=== PATIENT | female | born 1965 | race Two or more races ===

== ENCOUNTER 2021-09-09 11:33 | Inpatient (IN) | payer OTHER ==
[~2021-09-09] VITALS: Ht 160 cm; Wt 68.1 kg
[2021-09-09] MEDS ORDERED: METOPROLOL TARTRATE 5 MG/5 ML VIAL IVP ONE (12:00)
[2021-09-09] MEDS ORDERED: 0.9% SODIUM CHLORIDE 10 ML SYRINGE IVP PRN (12:00)
[2021-09-09] MEDS ORDERED: ACETAMINOPHEN 325 MG TABLET PO PRN (12:00)
[2021-09-09] MEDS ORDERED: ONDANSETRON HCL 4 MG/2 ML VIAL IVP PRN ×2 (12:00→14:00)
[2021-09-09] MEDS ORDERED: NITROGLYCERIN 0.4 MG SUBLINGUAL TABLET #25 SL ONE (12:00)
[2021-09-09 12:25] LABS: BASOPHILS % (AUTO) 0.7 % (0.0-2.0); EOSINOPHILS % (AUTO) 2.9 % (1.0-6.0); HEMATOCRIT 37.8 % (36-46); HEMOGLOBIN 12.5 g/dL (12.0-16.0); LYMPHOCYTES # (AUTO) 2.1 K/uL (1.0-4.8); LYMPHOCYTES % (AUTO) 30.6 % (22.0-44.0); MEAN CORPUSCULAR HEMOGLOBIN 26.1 pg (26.0-34.0); MEAN CORPUSCULAR HGB CONC 33.1 G/dL (31.0-37.0); MEAN CORPUSCULAR VOLUME 79 fL (80-100); MONOCYTES # (AUTO) 0.5 K/uL (0.1-1.0); MONOCYTES % (AUTO) 7.3 % (2.0-9.0); NEUTROPHILS # (AUTO) 3.9 K/uL (1.8-7.7); NEUTROPHILS % (AUTO) 58.5 % (40.0-70.0); PLATELET COUNT (AUTO) 350 K/uL (150-450); RED BLOOD CELL COUNT(AUTO) 4.79 MIL/uL (4.00-5.20); RED CELL DISTRIBUTION WIDTH 14.9 % (11.5-14.5)
[2021-09-09 12:33] LABS: CALCIUM, TOTAL 9.7 mg/dL (8.8-10.5); CREATININE 0.96 mg/dL (0.60-1.30); POTASSIUM 3.7 mmol/L (3.5-5.1)
[2021-09-09 12:39] LABS: ALBUMIN 2.8 g/dL (3.4-5.0); BILIRUBIN,TOTAL 0.3 mg/dL (0.1-1.0); TOTAL PROTEIN, SERUM 8.2 g/dL (6.4-8.2)
[2021-09-09] MEDS ORDERED: HEPARIN SODIUM,PORCINE 5,000 UNITS/ML VIAL IVP PRN ×2 (13:00)
[2021-09-09] MEDS ORDERED: HEPARIN SODIUM 25000 UNITS/D5W 250 ML IV PRN (13:00)
[2021-09-09] MEDS ORDERED: CLOPIDOGREL BISULFATE 75 MG TABLET PO ONE (13:00)
[2021-09-09] MEDS ORDERED: HEPARIN SODIUM,PORCINE 5,000 UNITS/ML VIAL IVP ONE (13:00)
[2021-09-09 13:31] LABS: INR 0.9 (0.9-1.1); PROTHROMBIN TIME 10.1 SEC (9.4-11.6)
[2021-09-09] MEDS ORDERED: DEXTROSE 50%-WATER 25 GM/50 ML SYRINGE IVP PRN (14:00)
[2021-09-09] MEDS: CARVEDILOL 12.5 MG TABLET PO SCH ×2 (14:18→21:37)
[2021-09-09 21:21] VITALS: BP 171/92
[2021-09-09 21:36] LABS: COVID AG,FIA SOURCE NASOPHARYNGEAL
[2021-09-09] MEDS: DOCUSATE SODIUM 100 MG CAPSULE PO SCH (21:37)
[2021-09-09] MEDS: FAMOTIDINE 20 MG TABLET PO SCH (21:37)
[2021-09-09] MEDS: INSULIN LISPRO 100 UNITS/ML SQ PRN (21:38)
[2021-09-09] MEDS: ACETAMINOPHEN 325 MG TABLET PO PRN (21:38)
[2021-09-09 21:43] LABS: GLUCOMETER DEV NAME(LOC) 5S.2B; GLUCOSE,POINT OF CARE 304 MG/DL (70-110)
[2021-09-10] VITALS (10 sets, daily range): BP systolic 142–181; BP diastolic 74–94
[2021-09-10 02:28] LABS: BASOPHILS % (AUTO) 0.7 % (0.0-2.0); EOSINOPHILS % (AUTO) 3.1 % (1.0-6.0); LYMPHOCYTES # (AUTO) 2.9 K/uL (1.0-4.8); LYMPHOCYTES % (AUTO) 39.2 % (22.0-44.0); MEAN CORPUSCULAR HEMOGLOBIN 25.8 pg (26.0-34.0); MEAN CORPUSCULAR HGB CONC 32.5 G/dL (31.0-37.0); MEAN CORPUSCULAR VOLUME 80 fL (80-100); MONOCYTES # (AUTO) 0.7 K/uL (0.1-1.0); MONOCYTES % (AUTO) 8.9 % (2.0-9.0); NEUTROPHILS # (AUTO) 3.6 K/uL (1.8-7.7); NEUTROPHILS % (AUTO) 48.1 % (40.0-70.0); PLATELET COUNT (AUTO) 327 K/uL (150-450); RED BLOOD CELL COUNT(AUTO) 4.65 MIL/uL (4.00-5.20); RED CELL DISTRIBUTION WIDTH 14.8 % (11.5-14.5)
[2021-09-10] MEDS ORDERED: HEPARIN SODIUM 25000 UNITS/D5W 250 ML IV PRN (03:15)
[2021-09-10] MEDS ORDERED: HEPARIN SODIUM,PORCINE 5,000 UNITS/ML VIAL IVP PRN ×2 (03:15)
[2021-09-10] MEDS ORDERED: LIDOCAINE/PF 1% 30 ML VIAL ONE (07:22)
[2021-09-10] MEDS ORDERED: IOHEXOL 300 MG/ML 100 ML VIAL ONE (07:22)
[2021-09-10] MEDS ORDERED: HEPARIN SODIUM 1000 UNITS/NS 1,000 ML ONE (07:22)
[2021-09-10] MEDS ORDERED: SODIUM BICARBONATE 50 MEQ/50 ML VIAL ONE (07:22)
[2021-09-10] MEDS ORDERED: IOHEXOL 300 MG/ML 150 ML VIAL ONE (07:22)
[2021-09-10] MEDS ORDERED: IOHEXOL 300 MG/ML 50 ML VIAL ONE (07:22)
[2021-09-10] MEDS ORDERED: MIDAZOLAM HCL 2 MG/2 ML VIAL ONE ×2 (08:09→08:22)
[2021-09-10] MEDS ORDERED: FentaNYL CITRATE PF 100 MCG/2 ML VIAL ONE ×2 (08:09→08:22)
[2021-09-10] MEDS ORDERED: HEPARIN SODIUM 1000 UNITS/NS 1,000 ML IARTER ONE (08:45)
[2021-09-10] MEDS ORDERED: LIDOCAINE 1% 30 ML/SOD BICARB 8.4% 4 ML SQ ONE (08:45)
[2021-09-10] MEDS ORDERED: IOHEXOL 300 MG/ML 50 ML VIAL IARTER ONE (08:45)
[2021-09-10] MEDS ORDERED: FentaNYL CITRATE PF 100 MCG/2 ML VIAL IVP ONE ×3 (08:45)
[2021-09-10] MEDS ORDERED: MIDAZOLAM HCL 2 MG/2 ML VIAL IVP ONE ×3 (08:45)
[2021-09-10] MEDS ORDERED: IOHEXOL 300 MG/ML 150 ML VIAL IARTER ONE (08:45)
[2021-09-10] MEDS ORDERED: SODIUM CHLORIDE 0.9% 500 ML IV SCH (08:45)
[2021-09-10] MEDS ORDERED: HEPARIN SODIUM,PORCINE 5,000 UNITS/ML VIAL IVP ONE (08:45)
[2021-09-10] MEDS ORDERED: SODIUM CHLORIDE 0.9% 500 ML IV ONE (08:45)
[2021-09-10] MEDS ORDERED: CLOPIDOGREL BISULFATE 75 MG TABLET PO SCH (09:00)
[2021-09-10] MEDS ORDERED: TICAGRELOR 90 MG TABLET ONE (09:04)
[2021-09-10] MEDS ORDERED: SODIUM CHLORIDE 0.9% 1,000 ML IV SCH (09:15)
[2021-09-10 09:16] LABS: GLUCOMETER DEV NAME(LOC) 5S.2B; GLUCOSE,POINT OF CARE 154 MG/DL (70-110)
[2021-09-10] MEDS ORDERED: CLOPIDOGREL BISULFATE 300 MG TABLET ONE (09:18)
[2021-09-10] MEDS ORDERED: CLOPIDOGREL BISULFATE 300 MG TABLET PO ONE (09:30)
[2021-09-10] MEDS: CARVEDILOL 12.5 MG TABLET PO SCH ×2 (11:22→20:37)
[2021-09-10] MEDS: DOCUSATE SODIUM 100 MG CAPSULE PO SCH ×2 (11:22→21:00)
[2021-09-10] MEDS: FAMOTIDINE 20 MG TABLET PO SCH ×2 (11:22→20:37)
[2021-09-10] MEDS: ASPIRIN 81 MG CHEWABLE TABLET PO SCH (11:22)
[2021-09-10] MEDS: ATORVASTATIN CALCIUM 40 MG TABLET PO SCH (11:23)
[2021-09-10] MEDS: INSULIN LISPRO 100 UNITS/ML SQ PRN ×3 (11:34→20:37)
[2021-09-10 12:53] LABS: GLUCOMETER DEV NAME(LOC) 5S.2B; GLUCOSE,POINT OF CARE 163 MG/DL (70-110)
[2021-09-10] MEDS: ACETAMINOPHEN 325 MG TABLET PO PRN (17:58)
[2021-09-10] MEDS: MORPHINE SULFATE 2 MG/ML SYRINGE IVP PRN (20:39)
[2021-09-11 04:20] VITALS: BP 153/87
[2021-09-11] MEDS: INSULIN LISPRO 100 UNITS/ML SQ PRN ×2 (06:16→11:56)
[2021-09-11 06:26] LABS: GLUCOMETER DEV NAME(LOC) 5S.1; GLUCOSE,POINT OF CARE 189 MG/DL (70-110)
[2021-09-11 07:11] LABS: CALCIUM, TOTAL 9.6 mg/dL (8.8-10.5); CREATININE 1.05 mg/dL (0.60-1.30); POTASSIUM 3.8 mmol/L (3.5-5.1)
[2021-09-11 07:24] VITALS: BP 160/94
[2021-09-11] MEDS: ATORVASTATIN CALCIUM 40 MG TABLET PO SCH (07:56)
[2021-09-11] MEDS: FAMOTIDINE 20 MG TABLET PO SCH (07:56)
[2021-09-11] MEDS: CARVEDILOL 12.5 MG TABLET PO SCH (07:56)
[2021-09-11] MEDS: DOCUSATE SODIUM 100 MG CAPSULE PO SCH (07:57)
[2021-09-11] MEDS: ASPIRIN 81 MG CHEWABLE TABLET PO SCH (07:57)
[2021-09-11] MEDS: MORPHINE SULFATE 2 MG/ML SYRINGE IVP PRN (08:03)
[2021-09-11] MEDS ORDERED: CLOPIDOGREL BISULFATE 75 MG TABLET PO SCH (09:00)
[2021-09-11 11:25] VITALS: BP 136/73
[2021-09-11 12:41] LABS: GLUCOMETER DEV NAME(LOC) 5S.2B; GLUCOSE,POINT OF CARE 225 MG/DL (70-110)
[2021-09-11] MEDS: ACETAMINOPHEN 325 MG TABLET PO PRN (14:21)
[2021-09-13 12:03] LABS: GLUCOMETER DEV NAME(LOC) 5N.3; GLUCOSE,POINT OF CARE 204 MG/DL (70-110)
[2021-09-13 12:03] LABS: GLUCOMETER DEV NAME(LOC) 5N.3; GLUCOSE,POINT OF CARE 170 MG/DL (70-110)
== END 2021-09-11 14:33 | disposition home or self-care (01) | DRG 246 ==
LOC: EMS 11:33 → 5S 18:55
PROVIDERS: ADMIT Internal Medicine; ATTEND Internal Medicine
PROC: 027034Z Dilation of Coronary Artery, One Artery with Drug-eluting Intraluminal Device, Percutaneous Approach (ICD-10-PCS; principal; 2021-09-10)
PROC: 02703ZZ Dilation of Coronary Artery, One Artery, Percutaneous Approach (ICD-10-PCS; 2021-09-10)
PROC: 4A023N7 Measurement of Cardiac Sampling and Pressure, Left Heart, Percutaneous Approach (ICD-10-PCS; 2021-09-10)
PROC: B211YZZ Fluoroscopy of Multiple Coronary Arteries using Other Contrast (ICD-10-PCS; 2021-09-10)
PROC: B215YZZ Fluoroscopy of Left Heart using Other Contrast (ICD-10-PCS; 2021-09-10)
PROC: B41FYZZ Fluoroscopy of Right Lower Extremity Arteries using Other Contrast (ICD-10-PCS; 2021-09-10)
PROC: B41CYZZ Fluoroscopy of Pelvic Arteries using Other Contrast (ICD-10-PCS; 2021-09-10)
DX: T82.855A Stenosis of coronary artery stent, initial encounter (principal); I21.4 Non-ST elevation (NSTEMI) myocardial infarction; I25.10 Atherosclerotic heart disease of native coronary artery without angina pectoris; E87.6 Hypokalemia; E11.65 Type 2 diabetes mellitus with hyperglycemia; F32.A Depression, unspecified; E78.5 Hyperlipidemia, unspecified; Z20.822 Contact with and (suspected) exposure to COVID-19; Y83.1 Surgical operation with implant of artificial internal device as the cause of abnormal reaction of the patient, or of later complication, without mention of misadventure at the time of the procedure; I11.0 Hypertensive heart disease with heart failure; I50.9 Heart failure, unspecified; I25.2 Old myocardial infarction; Z95.5 Presence of coronary angioplasty implant and graft; Z83.3 Family history of diabetes mellitus; Z82.49 Family history of ischemic heart disease and other diseases of the circulatory system; Y92.89 Other specified places as the place of occurrence of the external cause
CPT/HCPCS: 71045; 80048; 80053; 82550; 82962; 83880; 84484; 85025; 85610; 85730; 92920; 92928; 93005; 93306; 99291; J1644; J2250; J2270; J3010; J3490; J7030; Q9967; 36415-L1; 36415-TC